=== PATIENT | male | born 1960 | race Caucasian/White ===

== ENCOUNTER → 2016-09-11 | Outpatient (CLI) | payer BC ==
[2016-09-11 11:04] LABS: ALT/SGPT 77 U/L (12-78); AST/SGOT 32 U/L (15-37); BLOOD UREA NITROGEN 18 mg/dl (7-18); BUN/CREATININE RATIO 18.5 (10-20); CALCIUM 8.9 mg/dl (8.5-10.1); CARBON DIOXIDE 27 mmol/L (21-32); CHLORIDE 107 mmol/L (98-107); GLUCOSE 103 mg/dl (70-99); SODIUM 142 mmol/L (136-145)
[2016-09-11 11:06] LABS: ALB/GLOB RATIO 1.3 (0.9-2); ALKALINE PHOSPHATASE 61 U/L (45-117); CHOLESTEROL 152 mg/dl (0-200); HDL CHOLESTEROL 50 mg/dl; LDL CHOLESTEROL CALCULATED 83 mg/dl; TRIGLYCERIDES 94 mg/dl (0-150); VERY LOW DENSITY LIPOPROT CALC 19 mg/dl
[2016-09-11 11:34] LABS: ESTIMATED AVERAGE GLUCOSE 128 mg/dl; HA1C FLAG Normal (Normal)
== END | disposition home or self-care (01) ==
LOC: C.LABBC 07:47
PROVIDERS: ATTEND Family Medicine
DX: E11.9 Type 2 diabetes mellitus without complications (principal)

== ENCOUNTER 2017-12-02 10:09 | Inpatient (IN) | payer OTHER, BC ==
[~2017-12-02] VITALS: Ht 182.9 cm; Wt 132.1 kg
[2017-12-02] MEDS ORDERED: ASPIRIN 81 MG CHEW PO STA (10:58)
--- NOTE | 2017-12-02 10:58 | EMERGENCY ROOM VISIT NOTE ---
History Report prepared by Raymon: Harpal Pritchard Under the Supervision of: Dr. Bam Escalona M.D. First contact with patient: 10:36 Chief Complaint: CHEST PAIN Stated Complaint: CHEST DISCOMFORT History of Present Illness The patient is a 57 year old male who presents to the Emergency Room with complaints of intermittent chest pain for the last year. The patient states that he has been having a pinching discomfort in his left chest that occasionally travels to his left arm. He notes that he thought that his pain was due to a muscle. He reports that his chest pain worsens with exertion. The patient states that he had a stress test done seven years ago and reports that he was told that his heart muscle had a chance of thickening. He notes that he is currently having some chest discomfort. He reports that he has a history of sleep apnea, diabetes, and hypertension. The patient states that he occasionally wakes up and has a tight abdomen due to his sleep apnea. He notes that he uses an insulin pump. He reports that he smokes four cigarettes a month. The patient states that he did not take any aspirin today. Source of History: patient Onset: a year ago Position: chest Quality: other (pinching discomfort) Timing: intermittent Modifying Factors (Worsening): other (exertion) Associated Symptoms: + abdominal pain Note: The patient also complains of intermittent left arm pain. Review of Systems See HPI for pertinent positives & negatives. A total of 10 systems reviewed and were otherwise negative. Past Medical & Surgical Medical Problems: (1) Cellulitis (2) Diabetes (3) Elevated troponin (4) Hypertension (5) Kidney stone (6) Sleep apnea Family History Diabetes mellitus Heart disease Hypertension Kidney disease Kidney stones Social History Smoking Status: Current Some Day Smoker Marital Status: Housing Status: lives with family Occupation Status: employed Current/Historical Medications Scheduled Dapagliflozin Propanediol (Farxiga), 5 MG PO DAILY Insulin Aspart (Novolog), 200-250 UNITS XX DAILY Lisinopril (Lisinopril), 10 MG PO DAILY Sertraline (Zoloft), 100 MG PO DAILY Simvastatin (Zocor), 20 MG PO DAILY Allergies Coded Allergies: Dust (Unverified Allergy, Unknown, ., 12/02/17) Dust Mite Extract (Unverified Allergy, Unknown, ., 12/02/17) POLLEN (Unverified Allergy, Unknown, ., 12/02/17) Pollen Extract (Unverified Allergy, Unknown, ., 12/02/17) Physical Exam Vital Signs Date Time Temp Pulse Resp B/P (MAP) Pulse Ox O2 Delivery O2 Flow Rate FiO2 12/02/17 13:51 58 18 145/70 96 Room Air 12/02/17 12:40 99 Room Air 12/02/17 12:14 65 18 159/83 99 Room Air 12/02/17 11:12 63 12/02/17 11:07 97 Room Air 12/02/17 10:16 36.7 68 18 155/78 97 Room Air Physical Exam GENERAL: Awake, alert, well-appearing, in no acute distress HENT: Normocephalic, atraumatic. Oropharynx unremarkable. EYES: Normal conjunctiva. Sclera non-icteric. NECK: Supple. No nuchal rigidity. FROM. No JVD. RESPIRATORY: Clear to auscultation. CARDIAC: Regular rate, normal rhythm. Extremities warm and well perfused. Pulses equal. ABDOMEN: Soft, non-distended. No tenderness to palpation. No rebound or guarding. No masses. RECTAL: Deferred. MUSCULOSKELETAL: Chest examination reveals no tenderness. The back is symmetrical on inspection without obvious abnormality. There is no CVA tenderness to palpation. No joint edema. LOWER EXTREMITIES: Calves are equal size bilaterally and non-tender. No edema. No discoloration. NEURO: Normal sensorium. No sensory or motor deficits noted. SKIN: No rash or jaundice noted. Medical Decision & Procedures ER Provider Diagnostic Interpretation: Radiology results as stated below per my review and radiologist interpretation: CHEST ONE VIEW PORTABLE FINDINGS: Note is made of slight elevation of the right hemidiaphragm. There is no pneumothorax or pleural effusion. No consolidation or evidence for pulmonary edema. Note is made of mild to moderate enlargement of the cardiac silhouette. This is accentuated on this portable AP study. IMPRESSION: 1. No acute cardiopulmonary findings. 2. Mild to moderate enlargement of the cardiac silhouette. Electronically signed by: Beck Hoskins M.D. 12/02/2017 11:17 AM Dictated Date/Time: 12/02/2017 11:16 AM Laboratory Results 12/02/17 11:00 Red Blood Count 5.61, Mean Corpuscular Volume 85.4, Mean Corpuscular Hemoglobin 31.2, Mean Corpuscular Hemoglobin Concent 36.5, Mean Platelet Volume 10.8, Neutrophils (%) (Auto) 72.2, Lymphocytes (%) (Auto) 17.3, Monocytes (%) (Auto) 7.8, Eosinophils (%) (Auto) 1.5, Basophils (%) (Auto) 0.3, Neutrophils # (Auto) 5.75, Lymphocytes # (Auto) 1.38, Monocytes # (Auto) 0.62, Eosinophils # (Auto) 0.12, Basophils # (Auto) 0.02 12/02/17 11:00 Test 12/02/17 11:00 12/02/17 11:06 12/02/17 11:08 White Blood Count 7.96 K/uL (4.8-10.8) Red Blood Count 5.61 M/uL (4.7-6.1) Hemoglobin 17.5 g/dL (14.0-18.0) Hematocrit 47.9 % (42-52) Mean Corpuscular Volume 85.4 fL (80-100) Mean Corpuscular Hemoglobin 31.2 pg (25-34) Mean Corpuscular Hemoglobin Concent 36.5 g/dl (32-36) Platelet Count 154 K/uL (130-400) Mean Platelet Volume 10.8 fL (7.4-10.4) Neutrophils (%) (Auto) 72.2 % Lymphocytes (%) (Auto) 17.3 % Monocytes (%) (Auto) 7.8 % Eosinophils (%) (Auto) 1.5 % Basophils (%) (Auto) 0.3 % Neutrophils # (Auto) 5.75 K/uL (1.4-6.5) Lymphocytes # (Auto) 1.38 K/uL (1.2-3.4) Monocytes # (Auto) 0.62 K/uL (0.11-0.59) Eosinophils # (Auto) 0.12 K/uL (0-0.5) Basophils # (Auto) 0.02 K/uL (0-0.2) RDW Standard Deviation 42.5 fL (36.4-46.3) RDW Coefficient of Variation 13.8 % (11.5-14.5) Immature Granulocyte % (Auto) 0.9 % Immature Granulocyte # (Auto) 0.07 K/uL (0.00-0.02) Prothrombin Time 10.8 SECONDS (9.0-12.0) Prothromb Time International Ratio 1.0 (0.9-1.1) Activated Partial Thromboplast Time 24.6 SECONDS (21.0-31.0) Partial Thromboplastin Ratio 0.9 Est Creatinine Clear Calc Drug Dose 111.5 ml/min Estimated GFR () 92.6 Estimated GFR (Non- 79.9 BUN/Creatinine Ratio 15.2 (10-20) Calcium Level 8.8 mg/dl (8.5-10.1) Total Bilirubin 0.7 mg/dl (0.2-1) Direct Bilirubin 0.2 mg/dl (0-0.2) Aspartate Amino Transf (AST/SGOT) 26 U/L (15-37) Alanine Aminotransferase (ALT/SGPT) 62 U/L (12-78) Alkaline Phosphatase 73 U/L (45-117) Total Creatine Kinase 288 U/L (39-308) Creatine Kinase MB 2.7 ng/ml (0.5-3.6) Creatine Kinase MB Ratio 0.9 (0-3.0) Troponin I 0.061 ng/ml (0-0.045) Total Protein 7.2 gm/dl (6.4-8.2) Albumin 3.9 gm/dl (3.4-5.0) Lipase 205 U/L (73-393) Bedside D-Dimer 254 ng/mlFEU (0-450) Bedside Hemoglobin 16.3 g/dl (14.0-18.0) Bedside Hematocrit 48 % (42-52) Bedside Sodium 140 mEq/L (135-144) Bedside Potassium 3.7 mEq/L (3.3-5.0) Bedside Chloride 102 mEq/L (101-112) Bedside Total CO2 25 mEq/l (24-31) Anion Gap 17.0 mmol/L (16-25) Bedside Blood Urea Nitrogen 17 mg/dl (7-18) Bedside Creatinine 0.9 mg/dl (0.6-1.3) Bedside Glucose (other) 98 mg/dl (70-99) Bedside Ionized Calcium (Aramis) 1.16 mmol/l (1.12-1.32) Labs reviewed by ED physician. Medications Administered Medications (Trade) Dose Ordered Sig/Delano Route Start Time Stop Time Status Last Admin Dose Admin Aspirin (Aspirin Chew) 324 mg NOW STAT PO 12/02/17 10:58 12/02/17 10:59 DC 12/02/17 11:10 324 MG Heparin Sodium/ Dextrose (Heparin 25,000 Unit/500ml D5W) 25,000 unit STK-MED ONCE .ROUTE 12/02/17 12:39 12/02/17 12:40 DC 12/02/17 13:09 25,000 UNIT ECG Per My Interpretation Indication: chest pain Rate (beats per minute): 68 Rhythm: normal sinus Findings: T-wave inversion (Anterior), other (No ST elevation/depression) ED Course 1037: Past medical records reviewed. The patient was evaluated in room B6. A complete history and physical examination was performed. 1220: I discussed the patient's case with Dr. Sonny Matias [facility]. 1244: Upon reexamination the patient is stable. I discussed results and treatment plan with the patient. He verbalizes agreement and understanding. I spoke with Dr. Palafox from the [facility] Hospitalist Service. The patient will be evaluated for further management. Medical Decision Differential diagnosis: Etiologies such as cardiac ischemia, aortic dissection, pulmonary embolism, pneumonia, pneumothorax, musculoskeletal, infections, pericarditis, myocarditis , esophageal rupture, gastrointestinal, as well as others were entertained. This is a 57-year-old male who presents emergency department complaining of exertional chest pain that has been ongoing for the past month. In the emergency department the patient was given aspirin 324 mg. He has a normal d- dimer however his troponin is elevated. Based on this finding along with the patient's risk factors which include hypertension diabetes cigar smoking, the patient was started on a heparin drip. I did discuss the case with the signaler on-call who asked that the patient be admitted to the hospitalist service. Patient and were in agreement with the treatment plan. Medication Reconcilliation Current Medication List: was personally reviewed by me Blood Pressure Screening Patient's blood pressure: Elevated blood pressure Elevated blood pressure will be monitored by hospitalist. Consults Time Called: 1213 Consulting Physician: Dr. Sonny Matias [facility] Returned Call: 1220 I discussed the patient's case with Dr. Sonny Matias [facility]. Additional Consults: Time Called: 1240 Consulted Physician: Dr. Palafox - Arturo [facility] Returned Call: 1244 Additional Comments: I discussed the patient's case with Dr. Palafox, she has agreed to evaluate the patient for further management and care. Impression Primary Impression: Precordial chest pain Scribe Attestation The scribe's documentation has been prepared under my direction and personally reviewed by me in its entirety. I confirm that the note above accurately reflects all work, treatment, procedures, and medical decision making performed by me. Departure Information Dispostion Being Evaluated By Hospitalist Referrals Gilberto Mooney M.D. (PCP) Patient Instructions My [facility]
--- NOTE | 2017-12-02 11:18 | DIAGNOSTIC IMAGING REPORT ---
CHEST ONE VIEW PORTABLE CLINICAL HISTORY: Chest pain. Chest discomfort. COMPARISON STUDY: No previous studies for comparison. FINDINGS: Note is made of slight elevation of the right hemidiaphragm. There is no pneumothorax or pleural effusion. No consolidation or evidence for pulmonary edema. Note is made of mild to moderate enlargement of the cardiac silhouette. This is accentuated on this portable AP study. IMPRESSION: 1. No acute cardiopulmonary findings. 2. Mild to moderate enlargement of the cardiac silhouette. Electronically signed by: Beck Hoskins M.D. 12/02/2017 11:17 AM Dictated Date/Time: 12/02/2017 11:16 AM
[2017-12-02 11:22] LABS: ISTAT CREATININE 0.9 mg/dl (0.6-1.3); ISTAT IONIZED CALCIUM 1.16 mmol/l (1.12-1.32); ISTAT POTASSIUM 3.7 mEq/L (3.3-5.0)
[2017-12-02] MEDS ORDERED: LISI-461 PO (11:33)
[2017-12-02] MEDS ORDERED: SIMV20TA2 PO (11:33)
[2017-12-02] MEDS ORDERED: DAPA1TAB8 PO (11:33)
[2017-12-02] MEDS ORDERED: SERT-234 PO (11:33)
[2017-12-02] MEDS ORDERED: NVLG XX (11:33)
[2017-12-02 11:37] LABS: BASO % 0.3 %; BASO ABS # 0.02 K/uL (0-0.2); EOS % 1.5 %; EOS ABS # 0.12 K/uL (0-0.5); HEMATOCRIT 47.9 % (42-52); HEMOGLOBIN 17.5 g/dL (14.0-18.0); IG# 0.07 K/uL (0.00-0.02); LYMPH % 17.3 %; LYMPH ABS # 1.38 K/uL (1.2-3.4); MEAN CELL VOLUME 85.4 fL (80-100); MEAN CORPUSCULAR HEMOGLOBIN 31.2 pg (25-34); MEAN CORPUSCULAR HGB CONC 36.5 g/dl (32-36); MEAN PLATELET VOLUME 10.8 fL (7.4-10.4); MONO % 7.8 %; MONO ABS # 0.62 K/uL (0.11-0.59); NEUT % 72.2 %; NEUT ABS # 5.75 K/uL (1.4-6.5); PLATELET COUNT 154 K/uL (130-400); RED CELL DISTRIBUTION WIDTH CV 13.8 % (11.5-14.5); RED CELL DISTRIBUTION WIDTH SD 42.5 fL (36.4-46.3); WHITE BLOOD COUNT 7.96 K/uL (4.8-10.8)
[2017-12-02 12:11] LABS: ALBUMIN 3.9 gm/dl (3.4-5.0); CALCIUM 8.8 mg/dl (8.5-10.1); CKMB 2.7 ng/ml (0.5-3.6); CREATININE 1.04 mg/dl (0.60-1.40); POTASSIUM 3.7 mmol/L (3.5-5.1); TOTAL PROTEIN 7.2 gm/dl (6.4-8.2)
[2017-12-02] MEDS ORDERED: HEPARIN 25000 UNIT/500 ML D5W ONE (12:39)
[2017-12-02 12:40] VITALS: O2SAT 99; Ht 182.9 cm; Wt 132.1 kg
[2017-12-02 12:55] LABS: PTT PATIENT 24.6 SECONDS (21.0-31.0)
[2017-12-02] MEDS ORDERED: ONDANSETRON INJ 2 MG/ML 2 ML VIAL IV PRN (13:15)
[2017-12-02] MEDS ORDERED: MAGNESIUM HYDROXIDE SUSP 30 ML UDC PO PRN (13:15)
[2017-12-02] MEDS ORDERED: ACETAMINOPHEN 325 MG TAB PO PRN (13:15)
[2017-12-02] MEDS ORDERED: NITROGLYCERIN 0.4 MG SL PER TAB CHARGE SL PRN (13:15)
[2017-12-02] MEDS ORDERED: CARBOHYDRATES FOR HYPOGLYCEMIA PO PRN (13:30)
[2017-12-02] MEDS ORDERED: GLUCAGON FOR INJ 1 MG VIAL IM PRN (13:30)
[2017-12-02] MEDS ORDERED: GLUCOSE 10 TABS/TUBE PO PRN (13:30)
[2017-12-02] MEDS ORDERED: GLUCOSE 40% GEL 15 GM TUBE PO PRN (13:30)
[2017-12-02] MEDS ORDERED: DEXTROSE 50% 50 ML SYR IV PRN (13:30)
--- NOTE | 2017-12-02 13:32 | History and Physical ---
History & Physical Date & Time of Service: Dec 02, 2017 at 13:11 Chief Complaint: Chest Discomfort Primary Care Physician: Gilberto Mooney M.D. History of Present Illness Source: patient 57 y/o M c/o chest pain. Pt states that he has been having L sided chest pains that come and go for the last few months. They have been increasing in frequency and intensity. He gets them at various times, but sometimes with exertion. Sometimes it moves to his L UE, but not always. He has noted worsening SOB with stairs for some time as well and now at times with flat surfaces. He does not get SOB at the same time as the chest pain. He thought initially this chest pain was a pulled muscle, but decided to come to the ED as it was getting worse and he was having worsening SOB. No prior hx of [place]. Pains would resolve on their own. Pt does note that when he has been working out lately he has ringing in his L ear only. This resolves with rest. No chest pain at this time. Past Medical/Surgical History Medical Problems: (1) Cellulitis (2) Diabetes (3) Elevated troponin (4) Hypertension (5) Kidney stone (6) Sleep apnea Depression/anxiety Family History Diabetes mellitus Heart disease Hypertension Kidney disease Kidney stones Does not know paternal FH Neg for [place] on maternal side Social History Smoking Status: Current Some Day Smoker (3-4 CIGARS/ month, no cigarette use) Alcohol Use: occasionally (3-4 beers on the weekend) Drug Use: none Marital Status: Occupational Status: employed Allergies Coded Allergies: Dust (Unverified Allergy, Unknown, ., 12/02/17) Dust Mite Extract (Unverified Allergy, Unknown, ., 12/02/17) POLLEN (Unverified Allergy, Unknown, ., 12/02/17) Pollen Extract (Unverified Allergy, Unknown, ., 12/02/17) Home Medications Scheduled Dapagliflozin Propanediol (Farxiga), 5 MG PO DAILY Insulin Aspart (Novolog), 200-250 UNITS XX DAILY Lisinopril (Lisinopril), 10 MG PO DAILY Sertraline (Zoloft), 100 MG PO DAILY Simvastatin (Zocor), 20 MG PO DAILY Review of Systems Pertinent positives and negatives reviewed in HPI--all others negative Physical Exam Vital Signs Date Time Temp Pulse Resp B/P (MAP) Pulse Ox O2 Delivery O2 Flow Rate FiO2 12/02/17 12:14 65 18 159/83 99 Room Air 12/02/17 11:12 63 12/02/17 11:07 97 Room Air 12/02/17 10:16 36.7 68 18 155/78 97 Room Air General Appearance: no apparent distress, + obese Head: normocephalic, atraumatic Eyes: normal inspection, sclerae normal Respiratory/Chest: normal breath sounds, no respiratory distress Cardiovascular: regular rate, rhythm, no edema, normal peripheral pulses Abdomen/GI: non tender, soft Extremities/Musculoskelatal: no calf tenderness, no pedal edema Neurologic/Psych: alert, normal mood/affect, oriented x 3 Skin: normal color, warm/dry Diagnostics Laboratory Results Results Past 24 Hours Test 12/02/17 11:00 12/02/17 11:06 12/02/17 11:08 Range/Units White Blood Count 7.96 4.8-10.8 K/uL Red Blood Count 5.61 4.7-6.1 M/uL Hemoglobin 17.5 14.0-18.0 g/dL Hematocrit 47.9 42-52 % Mean Corpuscular Volume 85.4 80-100 fL Mean Corpuscular Hemoglobin 31.2 25-34 pg Mean Corpuscular Hemoglobin Concent 36.5 32-36 g/dl Platelet Count 154 130-400 K/uL Mean Platelet Volume 10.8 7.4-10.4 fL Neutrophils (%) (Auto) 72.2 % Lymphocytes (%) (Auto) 17.3 % Monocytes (%) (Auto) 7.8 % Eosinophils (%) (Auto) 1.5 % Basophils (%) (Auto) 0.3 % Neutrophils # (Auto) 5.75 1.4-6.5 K/uL Lymphocytes # (Auto) 1.38 1.2-3.4 K/uL Monocytes # (Auto) 0.62 0.11-0.59 K/uL Eosinophils # (Auto) 0.12 0-0.5 K/uL Basophils # (Auto) 0.02 0-0.2 K/uL RDW Standard Deviation 42.5 36.4-46.3 fL RDW Coefficient of Variation 13.8 11.5-14.5 % Immature Granulocyte % (Auto) 0.9 % Immature Granulocyte # (Auto) 0.07 0.00-0.02 K/uL Prothrombin Time 10.8 9.0-12.0 SECONDS Prothromb Time International Ratio 1.0 0.9-1.1 Activated Partial Thromboplast Time 24.6 21.0-31.0 SECONDS Partial Thromboplastin Ratio 0.9 Sodium Level 138 136-145 mmol/L Potassium Level 3.7 3.5-5.1 mmol/L Chloride Level 106 98-107 mmol/L Carbon Dioxide Level 25 21-32 mmol/L Anion Gap 7.0 17.0 16-25 mmol/L Blood Urea Nitrogen 16 7-18 mg/dl Creatinine 1.04 0.60-1.40 mg/dl Est Creatinine Clear Calc Drug Dose 111.5 ml/min Estimated GFR () 92.6 Estimated GFR (Non- 79.9 BUN/Creatinine Ratio 15.2 10-20 Random Glucose 92 70-99 mg/dl Calcium Level 8.8 8.5-10.1 mg/dl Total Bilirubin 0.7 0.2-1 mg/dl Direct Bilirubin 0.2 0-0.2 mg/dl Aspartate Amino Transf (AST/SGOT) 26 15-37 U/L Alanine Aminotransferase (ALT/SGPT) 62 12-78 U/L Alkaline Phosphatase 73 45-117 U/L Total Creatine Kinase 288 39-308 U/L Creatine Kinase MB 2.7 0.5-3.6 ng/ml Creatine Kinase MB Ratio 0.9 0-3.0 Troponin I 0.061 0-0.045 ng/ml Total Protein 7.2 6.4-8.2 gm/dl Albumin 3.9 3.4-5.0 gm/dl Lipase 205 73-393 U/L Bedside D-Dimer 254 0-450 ng/mlFEU Bedside Hemoglobin 16.3 14.0-18.0 g/dl Bedside Hematocrit 48 42-52 % Bedside Sodium 140 135-144 mEq/L Bedside Potassium 3.7 3.3-5.0 mEq/L Bedside Chloride 102 101-112 mEq/L Bedside Total CO2 25 24-31 mEq/l Bedside Blood Urea Nitrogen 17 7-18 mg/dl Bedside Creatinine 0.9 0.6-1.3 mg/dl Bedside Glucose (other) 98 70-99 mg/dl Bedside Ionized Calcium (Aramis) 1.16 1.12-1.32 mmol/l Diagnostic Radiology CXR neg for acute Impression Assessment and Plan 57 y/o M who was admitted on 12/02 with chest pain Chest pain: Probable ACS elevated trop, serials pending EKG with incomplete RBBB CXR neg for acute ED discussed with Dr. Dennis who feels pt will likely have a cath today Heparin drip started in ED, will continue No hx of prior [place] No hx of aspirin use On statin prior Lipid panel, A1c pending DM: insulin pump at baseline Prefers use to manage while admitted A1c pending HTN: continue home meds Hyperlipidemia: continue home meds DIANNA: on CPAP at home, does not have it with him Depression/anxiety: continue home meds Other: Full code Heparin for DVT proph Diet as per cardiology pending cath Resuscitation Status VTE Prophylaxis Will order VTE Prophylaxis: Yes
[2017-12-02 13:51] VITALS: O2SAT 96
[2017-12-02] MEDS: HEPARIN 25,000 UNIT/500ML D5W 500 ML IV SCH (14:25)
[2017-12-02] MEDS ORDERED: PNEUMOCOCCAL POLYSACCHARIDES 25 MCG/0.5 ML VIAL/SYR IM. ONE (14:45)
[2017-12-02] MEDS ORDERED: PNEUMOCOCCAL ADMINISTRATION CHARGE ONE (14:45)
--- NOTE | 2017-12-02 16:22 | Cardiology Consultation ---
Cardiology Consultation Date of Consultation: Dec 02, 2017. Pt evaluation today including: conversation w/ patient, conversation w/ family , physical exam, chart review, lab review, review of studies, review of inpatient medication list, conversation w/ attending History of Present Illness Mr. Martino is a 57yo M with a PMHx of ID-T2DM, hypertension, sleep apnea, and depression/anxiety who presents to the ED with an episode of chest pressure and shortness of breath on exertion. Mr. Martino reports that for the last year he has noticed steadily worsening now 5/10 chest discomfort with a tight, pressure-like quality with exertion. The discomfort often includes in L arm. He has had a few episodes this week, but while walking across the parking lot from his car he also experienced new shortness of breath which prompted him to come to the ER. He has not had shortness of breath with episodes previously. He rates his shortness of breath as 7-8/10 in intensity with this most recent episode. He notices the chest discomfort most times he walks up stairs and multiple times during the week with exercise. He exercises ~45 minutes 3-5x/wk with walking, elliptical, and situps. He associates the episodes with a L tingling/rining noise in his left ear. Endoreses palpitations with increased stress. Denies other associated symptoms. Denies syncope/presyncope, diaphoresis. He reports he was seen for some chest discomfort a few years ago and he was told his heart was 'a little bit bigger, but bigger didn't mean good.' He reports he has had some episodes of palpitations in the last few weeks. He notes he has been under increased stress for ~1 year due to work. He works in sales for [employer]. He has a 3-4 per month cigar use history for 25 years. He drinks 3-4x drinks of alcohol per week, generally beer on the weekends. His diabetes is controlled with an insulin pump. His glucose levels are generally 80-130 with highs to the 170's and lows to the 40's rarely this month. His latest HgA1C was 6.1%. He has a family history of CAD in his maternal grandmother, carotid stenosis in his mother, T2DM in both parents. Past Medical/Surgical History (1) Diabetes (2) Hypertension (3) Sleep apnea Family History Diabetes mellitus Heart disease Hypertension Kidney disease Kidney stones Social History Smoking Status: Current Some Day Smoker (3-4 CIGARS/ month, no cigarette use) History of Alcohol Use: Yes (3 beers a week) Review of Systems Constitutional: No fever, No chills, No sweats, No weight loss, No weakness, No fatigue Respiratory: + shortness of breath, + dyspnea on exertion, No cough, No wheezing, No dyspnea at rest, No hemoptysis Cardiac: + chest pain, + edema (notes mild pitting in his legs where his compression socks were at night), + palpitations (w/ increased stress at work), No orthopnea Abdomen: No pain, No nausea, No vomiting, No diarrhea, No constipation, No GI bleeding Male : + urinary frequency, No incontinence, No hematuria Neurologic: No weakness, No numbness/tingling, No vertigo Endo: + excessive thirst, + excessive urination Allergies Coded Allergies: Dust (Unverified Allergy, Unknown, ., 12/02/17) Dust Mite Extract (Unverified Allergy, Unknown, ., 12/02/17) POLLEN (Unverified Allergy, Unknown, ., 12/02/17) Pollen Extract (Unverified Allergy, Unknown, ., 12/02/17) Medications Current Inpatient Medications Medications (Trade) Dose Ordered Sig/[place] Route Start Time Stop Time Status Last Admin Dose Admin Acetaminophen (Tylenol Tab) 650 mg Q4H PRN PO 12/02/17 13:15 01/01/18 13:14 Magnesium Hydroxide (Milk Of Magnesia Susp) 30 ml Q12H PRN PO 12/02/17 13:15 01/01/18 13:14 Ondansetron HCl (Zofran Inj) 4 mg Q6H PRN IV 12/02/17 13:15 01/01/18 13:14 Nitroglycerin (Nitrostat Tab) 0.4 mg UD PRN SL 12/02/17 13:15 01/01/18 13:14 Lisinopril (Zestril Tab) 10 mg DAILY PO 12/03/17 09:00 01/02/18 08:59 Sertraline HCl (Zoloft Tab) 100 mg DAILY PO 12/03/17 09:00 01/02/18 08:59 Simvastatin (Zocor Tab) 20 mg DAILY PO 12/03/17 09:00 01/02/18 08:59 Miscellaneous Information (Order Awaiting Action) 1 ea QS N/A 12/02/17 16:00 01/01/18 15:59 Insulin Aspart (novoLOG ASPART) SLIDING SCALE G... ACHS SC 12/02/17 16:00 01/01/18 15:59 Glucose (Glucose 40% Gel) 15-30 GRAMS 15 GRAMS... UD PRN PO 12/02/17 13:30 01/01/18 13:29 Glucose (Glucose Chew Tab) 4-8 Tablets 4 Tabl... UD PRN PO 12/02/17 13:30 01/01/18 13:29 Dextrose (Dextrose 50% 50ML Syringe) 25-50ML 25ML FOR ... UD PRN IV 12/02/17 13:30 01/01/18 13:29 Glucagon (Glucagon Inj) 1 mg UD PRN IM 12/02/17 13:30 01/01/18 13:29 Carbohydrates (Carbohydrates For Hypoglycemia) 15-30 GRAMS 15 grams if BSG 54-69... UD PRN PO 12/02/17 13:30 01/01/18 13:29 Heparin Sodium/ Dextrose 500 ml @ 36 mls/hr [id number] IV 12/02/17 13:30 01/01/18 13:29 12/02/17 14:25 36 MLS/HR Physical Exam Vital Signs Past 12 Hours Date Time Temp Pulse Resp B/P (MAP) Pulse Ox O2 Delivery O2 Flow Rate FiO2 12/02/17 13:51 58 18 145/70 96 Room Air 12/02/17 12:40 99 Room Air 12/02/17 12:14 65 18 159/83 99 Room Air 12/02/17 11:12 63 12/02/17 11:07 97 Room Air 12/02/17 10:16 36.7 68 18 155/78 97 Room Air Psychiatric: Mental Status: active & alert, normal mood, normal affect Orientation: to time, to place, to person Head: normocephalic, atraumatic Neck: supple, trachea midline, no masses, pertinent finding (no carotid bruits present bilat) Lungs: Respiratory effort: no dyspnea, good air movement Auscultation: breath sounds normal, no wheezing, no rales/crackles, no rhonchi Cardiovascular: Apical Impulse: not displaced Heart Auscultation: RRR, normal S1, normal S2, no murmurs, no rubs, no gallops Peripheral Pulses: Carotid Pulse: normal on the left, normal on the right Radial Pulse: normal on the left, normal on the right Dorsalis Pedis Pulse: normal on the left, normal on the right, pertinent finding (tibialis pulses normal bilaterally) Extremities: edema (trace 1+ edema to the distal sauer bilaterally) Neurologic: Sensation: grossly intact Data Laboratory Results: Last 24 Hours Test 12/02/17 11:00 12/02/17 11:06 12/02/17 11:08 White Blood Count 7.96 K/uL Red Blood Count 5.61 M/uL Hemoglobin 17.5 g/dL Hematocrit 47.9 % Mean Corpuscular Volume 85.4 fL Mean Corpuscular Hemoglobin 31.2 pg Mean Corpuscular Hemoglobin Concent 36.5 g/dl Platelet Count 154 K/uL Mean Platelet Volume 10.8 fL Neutrophils (%) (Auto) 72.2 % Lymphocytes (%) (Auto) 17.3 % Monocytes (%) (Auto) 7.8 % Eosinophils (%) (Auto) 1.5 % Basophils (%) (Auto) 0.3 % Neutrophils # (Auto) 5.75 K/uL Lymphocytes # (Auto) 1.38 K/uL Monocytes # (Auto) 0.62 K/uL Eosinophils # (Auto) 0.12 K/uL Basophils # (Auto) 0.02 K/uL RDW Standard Deviation 42.5 fL RDW Coefficient of Variation 13.8 % Immature Granulocyte % (Auto) 0.9 % Immature Granulocyte # (Auto) 0.07 K/uL Prothrombin Time 10.8 SECONDS Prothromb Time International Ratio 1.0 Activated Partial Thromboplast Time 24.6 SECONDS Partial Thromboplastin Ratio 0.9 Sodium Level 138 mmol/L Potassium Level 3.7 mmol/L Chloride Level 106 mmol/L Carbon Dioxide Level 25 mmol/L Anion Gap 7.0 mmol/L 17.0 mmol/L Blood Urea Nitrogen 16 mg/dl Creatinine 1.04 mg/dl Est Creatinine Clear Calc Drug Dose 111.5 ml/min Estimated GFR () 92.6 Estimated GFR (Non- 79.9 BUN/Creatinine Ratio 15.2 Random Glucose 92 mg/dl Calcium Level 8.8 mg/dl Total Bilirubin 0.7 mg/dl Direct Bilirubin 0.2 mg/dl Aspartate Amino Transf (AST/SGOT) 26 U/L Alanine Aminotransferase (ALT/SGPT) 62 U/L Alkaline Phosphatase 73 U/L Total Creatine Kinase 288 U/L Creatine Kinase MB 2.7 ng/ml Creatine Kinase MB Ratio 0.9 Troponin I 0.061 ng/ml Total Protein 7.2 gm/dl Albumin 3.9 gm/dl Lipase 205 U/L Bedside D-Dimer 254 ng/mlFEU Bedside Hemoglobin 16.3 g/dl Bedside Hematocrit 48 % Bedside Sodium 140 mEq/L Bedside Potassium 3.7 mEq/L Bedside Chloride 102 mEq/L Bedside Total CO2 25 mEq/l Bedside Blood Urea Nitrogen 17 mg/dl Bedside Creatinine 0.9 mg/dl Bedside Glucose (other) 98 mg/dl Bedside Ionized Calcium (Aramis) 1.16 mmol/l Imaging: No acute changes, mildly increased cardiac silhouette EKG: new RBBB, no ST depression/elevation Telemetry reviewed: Assessment & Plan Mr. Martino is a 57yo M with a PMHx of ID-T2DM, HTN, and sleep apnea with crescendo angina over 1 year now admitted with a CC of shortness of breath and chest pain on exertion with troponin .061 pending serial repeat. ECG shows new RBBB, no ST changes. #Crescendo Angina w/ trop = .061 - Non-urgent Cardiac Cath likely tomorrow. Precath checklist as below - Aspirin 81mg daily - Start Metoprolol tartrate 12.5mg PO BID - No O2 needed at this time, O2Sat>94% on room air. O2 PRN to keep Sat>90% - Continue [employer] lisinopril 10mg daily - Heparin gtt. - Nitro sl .4mg PRN - Simvastatin 20mg PO daily - Trend troponin I Q6H Precath checklist - NPO at midnight - ASA 81mg daily - CBC, PT, Cr tomorrow. - EGFR = 79.9. Pt does not meet high risk criteria for angiography associated contrast nephropathy. #T2DM - Insulin aspart SSI - Glucose checks AC/HS
[2017-12-02] MEDS ORDERED: PHARMACY GLYCEMIC MGMT CONSULT PRN (17:15)
[2017-12-02] MEDS: INSULIN ASPART 100 UNITS/ML 3 ML PEN SC SCH ×2 (17:17→20:38)
[2017-12-02] MEDS ORDERED: INSULIN GLARGINE SOLOSTAR 100 UNITS/ML 3 ML PEN SC ONE (17:30)
[2017-12-02 19:33] VITALS: BP 128/68; PULSE 61; TEMP 36.7; O2SAT 96
[2017-12-02 19:36] LABS: PTT PATIENT 36.1 SECONDS (21.0-31.0)
[2017-12-02] MEDS ORDERED: HEPARIN IV BOLUS 8,000 UNIT in SYRINGE 0 ML IV ONE (20:15)
[2017-12-02] MEDS: METOPROLOL TARTRATE 25 MG TAB PO SCH (20:46)
[2017-12-02 23:50] VITALS: BP 128/76; PULSE 56; TEMP 37; O2SAT 95
[2017-12-03] VITALS (11 sets, daily range): BP systolic 131–173; BP diastolic 70–91; PULSE 57–83; TEMP 36.6–36.8; O2SAT 95–98
[2017-12-03 02:12] LABS: PTT PATIENT 109.1 SECONDS (21.0-31.0)
[2017-12-03 02:31] LABS: CALCIUM 8.6 mg/dl (8.5-10.1); CREATININE 1.03 mg/dl (0.60-1.40); POTASSIUM 3.8 mmol/L (3.5-5.1)
[2017-12-03] MEDS: HEPARIN 25,000 UNIT/500ML D5W 500 ML IV SCH (03:20)
[2017-12-03 06:05] LABS: HEMOGLOBIN A1C 6.6 % (4.5-5.6)
[2017-12-03] MEDS: INSULIN ASPART 100 UNITS/ML 3 ML PEN SC SCH (07:42)
[2017-12-03] MEDS: METOPROLOL TARTRATE 25 MG TAB PO SCH (08:15)
--- NOTE | 2017-12-03 08:59 | Cardiology Follow-Up ---
Subjective Date of Service: Dec 03, 2017. Pt evaluation today including: conversation w/ patient, conversation w/ family , physical exam, lab review History of Present Illness Mr. Martino reports he feels well this morning, but is anxious about his cardiac cath today. He endorses some pinching/tightness in his left chest overnight, endorses some possible palpitations overnight. He has been NPO since last night. He has had no SoB overnight and feels is breathing is at his normal healthy baseline. No episodes of syncope/presyncope, increased chest pain, diaphoresis, or dyspnea overnight. He had various questions regarding the effect of his weight on blood pressure and development of heart disease, ~15 minutes were spend on patient education on cardiac risk factors and weight loss with him and his . No other questions/concerns this morning. Denies fevers, chills, sweats, nausea, vomiting, stomach pain, lightheadedness, syncope, presyncope. Passing urine without difficulty. No diarrhea/constipation. Update 1046hrs: Cardiac cath completed with no adverse events. No significant cardiac vessel disease, no stents placed. Resident Physician Supervision Note: I was present with Dr. Castro during the history and exam. I discussed the case with the resident and agree with the findings and plan as documented in the note. Any exceptions or clarifications are listed here: Fortunately, his cardiac catheterization revealed no evidence of obstructive coronary artery disease. He is stable for hospital discharge. Documented By: Emanuel Dennis Social History Smoking Status: Current Some Day Smoker (3-4 CIGARS/ month, no cigarette use) History of Alcohol Use: Yes (3 beers a week) Review of Systems Respiratory: + dyspnea on exertion, No cough, No wheezing, No shortness of breath, No dyspnea at rest, No hemoptysis Cardiac: + edema (notes mild pitting in his legs where his compression socks were at night), + palpitations (No chest pain overnight, but mild discomfort and slight pinging/palpitation feeling), No chest pain, No orthopnea Denies fevers, chills, sweats, nausea, vomiting, stomach pain, lightheadedness, syncope, presyncope. Passing urine without difficulty. No diarrhea/constipation. Medications Current Inpatient Medications Medications (Trade) Dose Ordered Sig/[place] Route Start Time Stop Time Status Last Admin Dose Admin Acetaminophen (Tylenol Tab) 650 mg Q4H PRN PO 7/23/18 13:15 01/01/18 13:14 Magnesium Hydroxide (Milk Of Magnesia Susp) 30 ml Q12H PRN PO 12/02/17 13:15 01/01/18 13:14 Ondansetron HCl (Zofran Inj) 4 mg Q6H PRN IV 12/02/17 13:15 01/01/18 13:14 Nitroglycerin (Nitrostat Tab) 0.4 mg UD PRN SL 12/02/17 13:15 01/01/18 13:14 Lisinopril (Zestril Tab) 10 mg DAILY PO 12/03/17 09:00 01/02/18 08:59 12/03/17 08:15 10 MG Sertraline HCl (Zoloft Tab) 100 mg DAILY PO 12/03/17 09:00 01/02/18 08:59 12/03/17 08:15 100 MG Simvastatin (Zocor Tab) 20 mg DAILY PO 12/03/17 09:00 01/02/18 08:59 12/03/17 08:15 20 MG Miscellaneous Information (Order Awaiting Action) 1 ea QS N/A 12/02/17 16:00 01/01/18 15:59 Insulin Aspart (novoLOG ASPART) SLIDING SCALE G... ACHS SC 12/02/17 16:00 01/01/18 15:59 12/02/17 17:17 8 UNITS Glucose (Glucose 40% Gel) 15-30 GRAMS 15 GRAMS... UD PRN PO 12/02/17 13:30 01/01/18 13:29 Glucose (Glucose Chew Tab) 4-8 Tablets 4 Tabl... UD PRN PO 12/02/17 13:30 01/01/18 13:29 Dextrose (Dextrose 50% 50ML Syringe) 25-50ML 25ML FOR ... UD PRN IV 12/02/17 13:30 01/01/18 13:29 Glucagon (Glucagon Inj) 1 mg UD PRN IM 12/02/17 13:30 01/01/18 13:29 Carbohydrates (Carbohydrates For Hypoglycemia) 15-30 GRAMS 15 grams if BSG 54-69... UD PRN PO 12/02/17 13:30 01/01/18 13:29 Heparin Sodium/ Dextrose 500 ml @ 40 mls/hr [id number] IV 12/02/17 13:30 01/01/18 13:29 12/03/17 03:20 40 MLS/HR Metoprolol Tartrate (Lopressor Tab) 12.5 mg BID PO 12/02/17 21:00 01/01/18 20:59 12/03/17 08:15 12.5 MG Aspirin (Ecotrin Tab) 81 mg QAM PO 12/03/17 09:00 01/02/18 08:59 12/03/17 08:15 81 MG Miscellaneous Information (Consult Glycemic Management Pharmacy) 1 ea UD PRN N/A 12/02/17 17:15 01/01/18 17:14 Objective Vital Signs Past 12 Hours Date Time Temp Pulse Resp B/P (MAP) Pulse Ox O2 Delivery O2 Flow Rate FiO2 12/03/17 07:07 36.6 60 18 149/78 (101) 96 Room Air 12/03/17 03:43 36.8 57 20 131/70 (90) 97 BiPAP 12/03/17 00:02 Room Air CPAP 12/02/17 23:50 37.0 56 18 128/76 (93) 95 BiPAP Last Recorded Weight-Kilograms: 132.100 Physical Exam Constitutional: General Apperance: heathly-appearing, well-nourished, well-developed Level of Distress: NAD Ambulation: ambulating normally Lungs: Respiratory effort: no dyspnea, good air movement Auscultation: breath sounds normal, no wheezing, no rales/crackles, no rhonchi Cardiovascular: Heart Auscultation: RRR, normal S1, normal S2, no murmurs, no rubs, no gallops Peripheral Pulses: Carotid Pulse: normal on the left, normal on the right Radial Pulse: normal on the left, normal on the right Dorsalis Pedis Pulse: normal on the left, normal on the right, pertinent finding (tibialis pulses normal bilaterally) Extremities: no cyanosis, no edema Data Laboratory Results: Last 24 Hours Test 12/02/17 11:00 12/02/17 11:06 12/02/17 11:08 12/02/17 16:23 White Blood Count 7.96 K/uL Red Blood Count 5.61 M/uL Hemoglobin 17.5 g/dL Hematocrit 47.9 % Mean Corpuscular Volume 85.4 fL Mean Corpuscular Hemoglobin 31.2 pg Mean Corpuscular Hemoglobin Concent 36.5 g/dl Platelet Count 154 K/uL Mean Platelet Volume 10.8 fL Neutrophils (%) (Auto) 72.2 % Lymphocytes (%) (Auto) 17.3 % Monocytes (%) (Auto) 7.8 % Eosinophils (%) (Auto) 1.5 % Basophils (%) (Auto) 0.3 % Neutrophils # (Auto) 5.75 K/uL Lymphocytes # (Auto) 1.38 K/uL Monocytes # (Auto) 0.62 K/uL Eosinophils # (Auto) 0.12 K/uL Basophils # (Auto) 0.02 K/uL RDW Standard Deviation 42.5 fL RDW Coefficient of Variation 13.8 % Immature Granulocyte % (Auto) 0.9 % Immature Granulocyte # (Auto) 0.07 K/uL Prothrombin Time 10.8 SECONDS Prothromb Time International Ratio 1.0 Activated Partial Thromboplast Time 24.6 SECONDS Partial Thromboplastin Ratio 0.9 Sodium Level 138 mmol/L Potassium Level 3.7 mmol/L Chloride Level 106 mmol/L Carbon Dioxide Level 25 mmol/L Anion Gap 7.0 mmol/L 17.0 mmol/L Blood Urea Nitrogen 16 mg/dl Creatinine 1.04 mg/dl Est Creatinine Clear Calc Drug Dose 111.5 ml/min Estimated GFR () 92.6 Estimated GFR (Non- 79.9 BUN/Creatinine Ratio 15.2 Random Glucose 92 mg/dl Calcium Level 8.8 mg/dl Total Bilirubin 0.7 mg/dl Direct Bilirubin 0.2 mg/dl Aspartate Amino Transf (AST/SGOT) 26 U/L Alanine Aminotransferase (ALT/SGPT) 62 U/L Alkaline Phosphatase 73 U/L Total Creatine Kinase 288 U/L Creatine Kinase MB 2.7 ng/ml Creatine Kinase MB Ratio 0.9 Troponin I 0.061 ng/ml Total Protein 7.2 gm/dl Albumin 3.9 gm/dl Lipase 205 U/L Bedside D-Dimer 254 ng/mlFEU Bedside Hemoglobin 16.3 g/dl Bedside Hematocrit 48 % Bedside Sodium 140 mEq/L Bedside Potassium 3.7 mEq/L Bedside Chloride 102 mEq/L Bedside Total CO2 25 mEq/l Bedside Blood Urea Nitrogen 17 mg/dl Bedside Creatinine 0.9 mg/dl Bedside Glucose (other) 98 mg/dl Bedside Ionized Calcium (Aramis) 1.16 mmol/l Bedside Glucose 96 mg/dl Test 12/02/17 19:17 12/02/17 20:28 12/03/17 01:41 12/03/17 07:00 Activated Partial Thromboplast Time 36.1 SECONDS 109.1 SECONDS Partial Thromboplastin Ratio 1.4 4.2 Troponin I 0.055 ng/ml 0.054 ng/ml Bedside Glucose 125 mg/dl Sodium Level 138 mmol/L Potassium Level 3.8 mmol/L Chloride Level 106 mmol/L Carbon Dioxide Level 24 mmol/L Anion Gap 8.0 mmol/L Blood Urea Nitrogen 16 mg/dl Creatinine 1.03 mg/dl Est Creatinine Clear Calc Drug Dose 112.6 ml/min Estimated GFR () 93.7 Estimated GFR (Non- 80.8 BUN/Creatinine Ratio 15.3 Random Glucose 156 mg/dl Estimated Average Glucose 143 mg/dl Hemoglobin A1c 6.6 % Calcium Level 8.6 mg/dl Test 12/03/17 07:07 12/03/17 07:27 Bedside Glucose 164 mg/dl Imaging: Cardiac cath completed today, no significant cardiac vessel disease. Telemetry reviewed: Stable sinus rhythm & sinus weston to 60s. Sporadic nonsustained PVCs. Assessment and Plan Resident Physician Supervision Note: I was present with Dr. Castro during the history and exam. I discussed the case with the resident and agree with the findings and plan as documented in the note. Any exceptions or clarifications are listed here: Fortunately, his cardiac catheterization revealed no coronary artery disease. The patient is stable from a cardiac perspective for hospital discharge. Documented By: Emanuel Dennis Mr. Martino is a 57yo M with a PMHx of ID-T2DM, HTN, and sleep apnea admitted for crescendo angina over 1 year now admitted with a CC of shortness of breath and chest pain on exertion with troponin .061 now trending down to .054 with a normal cardiac cath showing no significant cardiac vessel disease. #Chest pain w/ normalized troponin and normal cardiac cath, consistent with non- cardiac chest pain - Continue Aspirin 81mg daily - D/C Metoprolol tartrate 12.5mg PO BID - D/C oxygen support protocol - Continue [employer] lisinopril 10mg daily - D/C Heparin gtt. - D/C Nitro sl .4mg PRN - Continue Simvastatin 20mg PO daily - D/c troponin I #Anxiety - Pt reports his anxiety has been increasing over the last year due to stress and is inadequately managed with his current counseling and sertraline 100mg. His anxiety and stress are likely strong contributing factors to his non- cardiac chest pain. He will follow-up as outpt for improved control. #T2DM - Insulin aspart SSI - Glucose checks AC/HS Discharge planning: home
[2017-12-03] MEDS ORDERED: ASPIRIN 81 MG ECTAB PO SCH (09:00)
[2017-12-03] MEDS ORDERED: SERTRALINE HCL 100 MG TAB PO SCH (09:00)
[2017-12-03] MEDS ORDERED: LISINOPRIL 10 MG TAB PO SCH (09:00)
[2017-12-03] MEDS ORDERED: SIMVASTATIN 20 MG TAB PO SCH (09:00)
[2017-12-03] MEDS ORDERED: MIDAZOLAM HCL 1 MG/ML 2ML VIAL ONE (09:05)
[2017-12-03] MEDS ORDERED: FENTANYL CITRATE INJ 50 MCG/1 ML 2 ML VIAL ONE (09:05)
[2017-12-03] MEDS ORDERED: HEPARIN SOD (PORCINE) 1000 UNIT/ML 10 ML VIAL ONE (09:05)
[2017-12-03] MEDS ORDERED: NiCARDipine HCL INJ 2.5 MG/ML 10 ML AMP ONE (09:05)
[2017-12-03] MEDS ORDERED: NITROGLYCERIN/D5W 100MCG/ML 20ML SYR ONE (09:06)
--- NOTE | 2017-12-03 09:12 | Pre Sedation Assessment ---
Pre Sedation Assessment General Date of Sedation: Dec 03, 2017. Vital Signs Past 12 Hours Date Time Temp Pulse Resp B/P (MAP) Pulse Ox O2 Delivery O2 Flow Rate FiO2 12/03/17 08:00 Room Air CPAP 12/03/17 07:07 36.6 60 18 149/78 (101) 96 Room Air 12/03/17 03:43 36.8 57 20 131/70 (90) 97 BiPAP 12/03/17 00:02 Room Air CPAP 12/02/17 23:50 37.0 56 18 128/76 (93) 95 BiPAP Review Cardiovascular: regular rate, rhythm, no edema Lungs: chest non-tender, lungs clear Pre-Sedation Airway Assessment Smoking Status: Current Some Day Smoker (3-4 CIGARS/ month, no cigarette use) Hx of Sleep Apnea: Yes Hx of difficult intubation: No Short Thick Neck: No Thyro-mental Distance: > 3 Finger Breadths Oral Cavity: WNL Mallampati Classification: Class II ASA Classification: Class II NPO Status Date of Last Intake of Fluids: Dec 02, 2017 Time of Last Intake of Fluids: 2299 Date of Last Intake of Solids: Dec 02, 2017 Time of Last Intake of Solids: 2229 Procedure Planning Contraindications for Sedation: None Current Medications Reviewed: Yes Notes The planned sedation has been discussed with the patient. Informed Consent was obtained. I have identified the patient, determined the appropriateness of sedation and have assessed the patient immediately prior to the procedure. All medicine(s) and interventions are by my order.
[2017-12-03 09:42] LABS: PTT PATIENT 59.8 SECONDS (21.0-31.0)
--- NOTE | 2017-12-03 09:52 | Pharmacy Progress Note ---
Glycemic Control Intl Consult Date of Service Dec 03, 2017. Scope Glycemic Pharmacist consulted by Dr Palafox on 12/02/17 for glycemic control and to write orders per [facility] inpatient glycemic control protocol Objective Weight (Kilograms): 132.100 Accuchecks BSG (last 24hrs): Test 12/02/17 11:00 12/02/17 16:23 12/02/17 20:28 12/03/17 01:41 Random Glucose 92 mg/dl (70-99) 156 mg/dl (70-99) Bedside Glucose 96 mg/dl (70-99) 125 mg/dl (70-99) Test 12/03/17 07:27 Bedside Glucose 164 mg/dl (70-99) Laboratory Data (last 24hrs) Test 12/02/17 11:00 12/02/17 11:08 12/03/17 01:41 Anion Gap 7.0 mmol/L 17.0 mmol/L 8.0 mmol/L BUN/Creatinine Ratio 15.2 15.3 Blood Urea Nitrogen 16 mg/dl 16 mg/dl Creatinine 1.04 mg/dl 1.03 mg/dl Potassium Level 3.7 mmol/L 3.8 mmol/L Sodium Level 138 mmol/L 138 mmol/L White Blood Count 7.96 K/uL Red Blood Count 5.61 M/uL Hemoglobin 17.5 g/dL Hematocrit 47.9 % Mean Corpuscular Volume 85.4 fL Mean Corpuscular Hemoglobin 31.2 pg Mean Corpuscular Hemoglobin Concent 36.5 g/dl Platelet Count 154 K/uL Mean Platelet Volume 10.8 fL Neutrophils (%) (Auto) 72.2 % Lymphocytes (%) (Auto) 17.3 % Monocytes (%) (Auto) 7.8 % Eosinophils (%) (Auto) 1.5 % Basophils (%) (Auto) 0.3 % Neutrophils # (Auto) 5.75 K/uL Lymphocytes # (Auto) 1.38 K/uL Monocytes # (Auto) 0.62 K/uL Eosinophils # (Auto) 0.12 K/uL Basophils # (Auto) 0.02 K/uL Hemoglobin A1c 6.6 % HbA1c Test 12/03/17 01:41 Hemoglobin A1c 6.6 % (4.5-5.6) H Recent Pertinent Medications Outpatient Anti-diabetic Regimen: * NovoLog insulin pump * Basal Rates 1370-5653: 2 units/hr 7665-8227: 3 units/hr 8570-7698: 2.1 units/hr * Bolus - No SF - Carb ratio of 1 unit for every 3g CHO consumed * Total daily dose ~ 115-130 units/day Assessment & Plan ASSESSMENT: * 57yo T2Dm male with excellent outpatient control per A1c * Pt is maintained on Sq insulin pump - managed by Alireza * Pump removed on admission and patient converted to SQ basal bolus insulin regimen based on Pump settings. Doses slightly reduced for NPO status in prep for cardiac cath. * BSGs well controlled with current orders but expect insulin needs to increase after surgery secondary to stress and increased PO intake * Will set scale based dosing for basal insulin and adjust CF/CR to be c/w pump settings * Goal is to maintain BSGs <200 mg/dl (ideally <150 mg/dl) to prevent post-op infectious complications PLAN FOR INPATIENT GLYCEMIC CONTROL: * Hold outpatient SQ insulin pump. Can re-resume upon discharge. Use SQ basal bolus insulin regimen while in house. * Basal insulin * Lantus dose to be 50% of total daily dose. Outpatient total daily dose ranges 115-130 units/day. Will dose Lantus based on BSG according to total daily dose range * BSG below 140 mg/dl --> Lantus 50 units * BSG 140mg/dl or above --> Lantus 65 units * Bolus insulin * NovoLog per scale ACHS or Q6hrs while NPO * Goal Range: Low 110 mg/dL - High 140 mg/dL * Correction Factor: 10 mg/dL/unit * Nutritional / Prandial insulin per carb ratio of 1 unit per 4 grams CHO consumed * Utilizing slightly less aggressive CR since CF is being used as well * Please note that the plan above was derived based on current level of insulin resistance and hospital stress. These recommendations are appropriate for inpatient admission only. Plan of care upon discharge will need to be reassessed to avoid potential outpatient hypo/hyperglycemia. Thank you.
--- NOTE | 2017-12-03 10:33 | Post Sedation Assessment ---
Post Sedation Assessment General Date of Sedation Dec 03, 2017. Vital Signs: Vital Signs Past 12 Hours Date Time Temp Pulse Resp B/P (MAP) Pulse Ox O2 Delivery O2 Flow Rate FiO2 12/03/17 10:11 62 14 119/63 (81) 98 Room Air 12/03/17 08:00 Room Air CPAP 12/03/17 07:07 36.6 60 18 149/78 (101) 96 Room Air 12/03/17 03:43 36.8 57 20 131/70 (90) 97 BiPAP 12/03/17 00:02 Room Air CPAP 12/02/17 23:50 37.0 56 18 128/76 (93) 95 BiPAP Post Procedure Recovery Score Activity: (2) Moves 4 extremities * Respiration: (2) Deep breath/cough Circulation: (2) +/-20% PreAnes Value Consciousness: (2) Fully Awake Oxygen Saturation: (2) > 92% On Room Air Post Anesthesia Score: 10 Discharge Sedation Level of Care: Fast Track Phase II Post Sedation Plan On clinical assessment, the patient appears to have tolerated the sedation without complications. Patient is recovering as anticipated. Patient will continue to be monitored by nursing and may be discharged when sedation discharge criteria are met per below protocol. Upon Completions of procedure and additional 15 minutes continue every 5 minute vital signs and the P.A.R. score; then discharge to a Phase I or Fast Track to Phase II per the following guidelines: * Discharge Patient to appropriate Phase II area if PAR is 8 or greater or return to pre- procedure baseline. The post - procedure orders will be as directed. * If PAR score is less than 8 or not return to pre-procedure baseline then patient will follow Phase I monitoring till PAR is reached for Phase II. The Phase I may be done in procedure room or may call to secure a Phase I area. * If naloxone or flumazenil are used for reversal, hold in Phase I for an additional 60 -120 minutes before discharge to Phase II. Please call the Sedation Physician to re-evaluate and complete post-note for discharge to Phase II area. Do NOT discharge from procedure sedation or Phase 1 until post- sedation evaluation note is complete by procedure /sedation MD Sedation Discharge Instructions to be given to the patient at discharge to home.
--- NOTE | 2017-12-03 10:39 | Cardiac Catheterization ---
Procedure Note Procedure Date Dec 03, 2017. Pre-Procedure Diagnosis Non STEMI AUC Score 7 Post-Procedure Diagnosis Normal Coronary Arteries Procedure(s) Performed Coronary Angiography, Left Heart Cath Recovery Engineer Armin Ug Designer(s) Contino Estimated Blood Loss 10 Medication(s) Fentanyl, Heparin, Nicardipine, Nitroglycerin, Versed, Lidocaine 1% Summary of Findings Indication: Atypical chest pain, minimally elevated troponin Access: 6Fr right radial artery Catheters: Bernard, JR4, AR1, AL1, 3DRC, Dirk Findings: LM - Angiographically normal LAD - Angiographically normal, tortuous in mid and distal segments. Slow flow in apical segment Circumflex - Angiographically normal RCA - Dominant, minimal disease at ostium otherwise normal LVEDP - 19 Arterial Closure: TR Band Summary: 1. Essentially normal coronary arteries. 2. Elevated intracardiac filling pressure. Recommendations: Continued ASCVD risk factor modification including blood pressure control. Consider low dose diuretics if dyspnea in the setting of elevated LVEDP. Hemodynamics Rest Ao: 110/69/86 Final Ao: 128/68/92 LV: 114/19 Recommendations Medical therapy and/or Counseling Radiation Exposure (mGy) 3046 Contrast (mls) 75 opti Fluids (cc crystalloids) 55 Drains none Anesthesia moderate Procedural Complication(s) None Disposition PCU ACC Data Cardiac Status Clinical evaluation leading to the procedure CAD Presntation: Non STEMI Anginal Classification: CCS IV Heart Failure: No, NYHA Class: CCS I Cardiogenic Shock w/in 24Hrs: No Cardiac Arrest w/in 24Hrs: No Imaging studies past 6 months: Yes Stress studies past 6 months: No Closure Device Percutaneous Entry Location: Radial Closure Device: Radial Band Recommendations: Medical therapy and/or Counseling Intraprocedure Events Significant Dissection: No Perforation: No
[2017-12-03] MEDS ORDERED: ASPI-461 PO (11:37)
[2017-12-03] MEDS ORDERED: LPR25 PO (11:37)
--- NOTE | 2017-12-03 11:45 | Discharge Instructions ---
Discharge Instructions Date of Service Dec 03, 2017. Admission Reason for Admission: Elevated Troponin Discharge Discharge Diagnosis / Problem: NSTEMI, normal left heart catheterization Discharge Goals Goal(s): Improve function, Improve disease control Activity Recommendations Activity Limitations: resume your previous activity . Instructions / Follow-Up Instructions / Follow-Up Medications: - METOPROLOL: 12.5mg twice a day, started at time of admission, tolerating well , recommended for prevention of CT in future - ASPIRIN: 81mg daily for CT protection Mild NSTEMI, normal coronary arteries on catheterization certainly you have risk factors for coronary disease, fortunately your symptoms did not coincide with a major heart attack or severe coronary disease as we discussed, going forward you can improve your risk factors weight loss of 10% of body weight is excellent goal, can be achieved with exercise and eating less blood pressure control, continue Lisinopril 10mg, metoprolol 12.5mg twice a day was added by cardiology, goal would be < 130/80 hb A1c is at goal of 6.6% cholesterol is well controlled, LDL is 86 (want this less than 100) and HDL is 49 (want this above 40) follow up with Dr. Mooney in one week, call his office for hospital follow up appointment Current Hospital Diet Patient's current hospital diet: AHA Diet (Heart Healthy), Diabetes Type 2 Diet Discharge Diet Recommended Diet: AHA Diet (Heart Healthy), Diabetes Type 2 Diet Procedures Procedures Performed: Left heart catheterization, mild plaque formation Pending Studies Studies pending at discharge: no Laboratory Results Hemoglobin A1c Test 12/03/17 01:41 Range/Units Estimated Average Glucose 143 mg/dl Hemoglobin A1c 6.6 H 4.5-5.6 % Lipid Panel Test 12/03/17 08:58 Range/Units Triglycerides Level 115 0-150 mg/dl Cholesterol Level 158 0-200 mg/dl HDL Cholesterol 49 mg/dl Cholesterol/HDL Ratio 3.2 LDL Cholesterol, Calculated 86 mg/dl Medical Emergencies . Who to Call and When: Medical Emergencies: If at any time you feel your situation is an emergency, please call 911 immediately. . Non-Emergent Contact Non-Emergency issues call your: Primary Care Provider Call Non-Emergent contact if: you have any medication questions . . "Provider Documentation" section prepared by Natan Morales PA Drug Monitoring Program Search Results: no issues identified
[2017-12-03] MEDS ORDERED: INSULIN GLARGINE SOLOSTAR 100 UNITS/ML 3 ML PEN SC ONE (16:45)
--- NOTE | 2017-12-08 09:07 | Discharge Summary ---
Discharge Summary Date of Service Dec 03, 2017. Discharge Summary Admission Date: Dec 02, 2017 at 13:11 Discharge Date: Dec 03, 2017 Discharge Disposition: Home Principal Diagnosis: Chest pain Problems/Secondary Diagnoses: Obesity Hypertension Dyslipidemia Diabetes mellitus Procedures: Left heart catheterization, mild plaque but no stenosis seen Consultations: Cardiology Medication Reconciliation New Medications: Aspirin (Aspirin) 81 Mg Tab 81 MG PO QAM, #30 TAB 4 Refills Metoprolol Tartrate (Lopressor) 25 Mg Tab 12.5 MG PO BID, #30 TAB 3 Refills Continued Medications: Dapagliflozin Propanediol (Farxiga) 10 Mg Tab 5 MG PO DAILY Insulin Aspart (Novolog) 100 Units/Ml Inj 200-250 UNITS XX DAILY 200-250 UNITS INTO PUMP DAILY DIRECTED, PER DARRIN [facility]. Lisinopril (Lisinopril) 10 Mg Tab 10 MG PO DAILY Sertraline (Zoloft) 100 Mg Tab 100 MG PO DAILY Simvastatin (Zocor) 20 Mg Tab 20 MG PO DAILY Discharge Exam Patient doing well after heart catheterization. No further chest pain. Discussed findings with the patient. He feels like the whole situation was a "wake up call" for him. He knows that there are lifestyle changes he can make to improve his health. He would like to lose at least 10% of his bodyweight. He would like to eat less carbs. Discussed that his HbA1c was 6.6% and is at goal, but he says that he eats too much and just knows how to cover himself well. He has a lot of stress at work that he needs to improve upon. He wants to see a counselor and wants to discuss trying a new SSRI with his PCP. Review of Systems: Constitutional: No fever, No chills, No sweats, No weight loss, No weakness , No fatigue, No problem reported Eyes: No worsening of vision, No eye pain, No redness, No discharge, No diplopia, No problem reported ENT: No hearing loss, No unusual epistaxis, No nasal symptoms, No sore throat, No tinnitus, No dental problems, No trouble swallowing, No problem reported Respiratory: No cough, No sputum, No wheezing, No shortness of breath, No dyspnea on exertion, No dyspnea at rest, No hemoptysis, No problem reported Cardiovascular: No chest pain, No orthopnea, No PND, No edema, No claudication, No palpitations, No problem reported Abdomen: No pain, No nausea, No vomiting, No diarrhea, No constipation, No GI bleeding, No problem reported Musculoskeletal: No joint pain, No muscle pain, No swelling, No calf pain, No problem reported Genitourinary - Male: No hematuria, No dysuria, No urinary frequency, No urinary urgency Neurologic: No memory loss, No paralysis, No weakness, No numbness/tingling , No vertigo, No balance problems, No problem reported Psychiatric: + anxiety, No depression symptoms, No anhedonism, No insomnia, No substance abuse, No problem reported Endocrine: No fatigue, No excessive thirst, No excessive urination, No problem reported Hematologic / Lymphatic: No abnormal bleeding/bruising, No clotting problems , No swollen lymph nodes, No night sweats, No problem reported Integumentary: No rash, No itch, No new/changing skin lesions, No color change, No bleeding, No problem reported Physical Exam: General Appearance: no apparent distress, + obese Eyes: normal inspection, EOMI, sclerae normal ENT: normal ENT inspection, hearing grossly normal, pharynx normal Neck: supple, no adenopathy, no JVD, trachea midline Respiratory/Chest: chest non-tender, lungs clear, normal breath sounds, no respiratory distress, no accessory muscle use Cardiovascular: regular rate, rhythm, no edema, no gallop, no JVD, no murmur , normal peripheral pulses Abdomen / GI: normal bowel sounds, non tender, soft, no organomegaly Extremities: normal inspection, no calf tenderness, normal capillary refill , no pedal edema, normal range of motion, pelvis stable Neurologic/Psychiatric: interactive digital media specialist II-XII nml as tested, no motor/sensory deficits , alert, normal mood/affect, normal reflexes, oriented x 3 Skin: normal color, warm/dry, no rash Lymphatic: no adenopathy Hospital Course Chest pain, no changes on EKG, minimal elevation in troponin at 0.06 and then down to 0.05 likely just angina, no signs of unstable angina or NSTEMI left heart catheterization performed by Dr. Funez due to symptoms and significant risk factors LHC showed some plaque but no stenosis plan for discharge is to control further risk factors weight loss of 10% of body weight is excellent goal, can be achieved with exercise and eating less blood pressure control, continue Lisinopril 10mg, added metoprolol 12.5mg twice a day, goal would be < 130/80 hb A1c is at goal of 6.6% cholesterol is well controlled, LDL is 86 (want this less than 100) and HDL is 49 (want this above 40) DM, insulin dependent: diabetic diet, A1c is 6.6% Dyslipidemia: LDL 86, HDL 49 HTN: added Lopressor 12.5mg BID while admitted, HR tolerated well continue Lisinopril 10mg daily Anxiety: patient will d/w PCP about changing SSRI? plans to get counseling would be good to institute exercise program, healthy stress relief Total Time Spent: Greater than 30 minutes This includes examination of the patient, discharge planning, medication reconciliation, and communication with other providers. Discharge Instructions Please refer to the electronic Patient Visit Report (Discharge Instructions) for additional information. Follow-Up Dr. Mooney in one week Additional Copies To Gilberto Mooney M.D.
== END 2017-12-03 13:46 | disposition home or self-care (01) | DRG 287 ==
LOC: C.EDB 10:11 → C.2T 13:11 → ENRESERV 13:24
PROVIDERS: ADMIT Family Medicine; ATTEND Internal Medicine
PROC: B2111ZZ Fluoroscopy of Multiple Coronary Arteries using Low Osmolar Contrast (ICD-10-PCS; principal; 2017-12-03 09:30)
PROC: 4A023N7 Measurement of Cardiac Sampling and Pressure, Left Heart, Percutaneous Approach (ICD-10-PCS; principal; 2017-12-03 09:30)
DX: I25.118 Atherosclerotic heart disease of native coronary artery with other forms of angina pectoris (principal); E11.9 Type 2 diabetes mellitus without complications; I45.10 Unspecified right bundle-branch block; E66.9 Obesity, unspecified; G47.33 Obstructive sleep apnea (adult) (pediatric); I10 Essential (primary) hypertension; F41.8 Other specified anxiety disorders; Z87.442 Personal history of urinary calculi; Z83.3 Family history of diabetes mellitus; Z82.49 Family history of ischemic heart disease and other diseases of the circulatory system; Z79.4 Long term (current) use of insulin; Z96.41 Presence of insulin pump (external) (internal)